=== PATIENT | male | born 1990 | race Caucasian/White ===

== ENCOUNTER 2023-03-16 15:24 | Emergency (ER) | payer OTHER ==
[~2023-03-16] VITALS: Ht 175.3 cm; Wt 95.9 kg
[~2023-03-16 15:24] MED LIST: ERYTHROMYCIN3.5 GM OS; HYDROXYZINE HCL50 MG PO; NORCO 5-325 TA1 EACH PO; ZOLOFT50 MG PO
[2023-03-16 15:46] LABS: BASOPHILS 0.3 % (0-2); EOSINOPHILS 0.8 % (0-6); HEMATOCRIT 49.6 % (35.0-50.0); HEMOGLOBIN 17.1 g/dL (12.0-18.0); LYMPHOCYTES 17.5 % (24-44); MCH 31.7 (27-36); MCHC 34.4 g/dl (30-36); MCV 92.2 fl (81-99); MONOCYTES 8.2 % (0-12); NEUTROPHILS 73.2 % (39-80); PLATELET COUNT 310 K/uL (140-440); RBC 5.39 M/ul (4.3-5.7); RDW 13.2 (10.5-15.0)
[2023-03-16 16:09] LABS: ACETAMINOPHEN 0 ug/mL (10-30); ALBUMIN/GLOBULIN RATIO 1.11 (1.1-2.4); ALCOHOL, MEDICAL <3 ng/dL (<3); ALKALINE PHOSPHATASE 77 U/L (46-116); ALT (SGPT) 26 U/L (14-59); ANION GAP 13.8 (7-21); AST (SGOT) 11 U/L (15-37); BILIRUBIN, TOTAL 0.4 ng/dL (0.2-1.0); BUN/CREATININE RATIO 8.54 (6.0-28.6); CALCIUM 8.9 mg/dL (8.5-10.1); CARBON DIOXIDE 27 mmol/L (21-32); CHLORIDE 100 mmol/L (98-107); CREATININE, SERUM 1.17 mg/dL (0.70-1.30); GLOMERULAR FILTRATION RATE,EST 84 mL/min (>60); POTASSIUM 3.8 mmol/L (3.5-5.1); PROTEIN, TOTAL 7.6 g/dL (6.4-8.2); SALICYLATE 1.2 mg/dL (2.8-20.0); UREA NITROGEN 10 mg/dL (7-18)
[2023-03-16 16:41] LABS: BILIRUBIN, URINE NEGATIVE (negative); BLOOD/HGB, URINE MODERATE (Negative); KETONE, URINE NEGATIVE (Negative); LEUK ESTERASE, URINE NEGATIVE (negative); NITRITE, URINE NEGATIVE (negative); PH, URINE 5.5 (5-7)
[2023-03-16 16:46] LABS: BACTERIA, URINE NONE SEEN /hpf (negative); CASTS, URINE NONE SEEN \\lpf; COLLECTION TYPE, URINE CLEAN CATCH; CRYSTALS, URINE CALCIUM OXALATE 2+ (0-1+); EPITHELIAL CELLS, URINE 0 /lpf (0-1+); REFLEX CULTURE, URINE No (No); WHITE BLOOD CELLS, URINE 0-1 /HPF (0-5)
[2023-03-16 16:56] LABS: AMPHETAMINES, URINE NEGATIVE (NEGATIVE); BARBITURATES, URINE NEGATIVE (NEGATIVE); BENZODIAZEPINE, URINE NEGATIVE (NEGATIVE); BUPRENORPHINE, URINE NEGATIVE (NEGATIVE); CANNABINOID, URINE NEGATIVE (NEGATIVE); COCAINE, URINE NEGATIVE (NEGATIVE); ECSTASY, URINE NEGATIVE (NEGATIVE); FENTANYL, URINE NEGATIVE (NEGATIVE); METHADONE, URINE NEGATIVE (NEGATIVE); OPIATES, URINE NEGATIVE (NEGATIVE); OXYCODONE, URINE NEGATIVE (NEGATIVE); PHENCYCLIDINE, URINE NEGATIVE (NEGATIVE)
[2023-03-16] MEDS ORDERED: ACETAMINOPHEN 500 MG TAB PO PRN (17:00)
[2023-03-16] MEDS ORDERED: NAPROXEN 500 MG TAB PO PRN (17:00)
[2023-03-16] MEDS ORDERED: TRAZODONE HCL 100 MG TAB PO PRN (17:00)
[2023-03-17] MEDS ORDERED: OLANZapine 10 MG TAB PO SCH (21:00)
[2023-03-18] MEDS ORDERED: OLANZapine 10 MG TAB PO SCH (21:00)
[2023-03-26 12:20] LABS: INFLUENZA B NAA NEGATIVE (NEGATIVE); RESPIRATORY SYNCYTIAL VIR NAA NEGATIVE (NEGATIVE)
[2023-03-30] MEDS ORDERED: ZYPREXA15 MG PO (13:45)
[2023-03-30 13:53] VITALS: BP 118/79
== END 2023-03-30 13:54 | disposition home or self-care (01) ==
LOC: ED 15:24
PROVIDERS: Emergency Medicine
DX: F48.9 Nonpsychotic mental disorder, unspecified (principal); R51.9 Headache, unspecified; F17.200 Nicotine dependence, unspecified, uncomplicated
CPT/HCPCS: 36415; 80053; 80307; 81001; 84443; 85025; 87502; 99285; A9270; G0480; U0002